=== PATIENT | female | born 2000 | race Two or more races ===

== ENCOUNTER 2020-12-07 20:00 | Emergency (ER) | payer OTHER ==
[~2020-12-07] VITALS: Ht 154.9 cm; Wt 113.6 kg
[2020-12-07] MEDS ORDERED: KETOROLAC TROMETHAMINE 30 MG/ML VIAL IM ONE (21:45)
[2020-12-07] MEDS ORDERED: HYDROCODONE/ACETAMINOPHEN 5-325 MG TABLET PO ONE (22:30)
[2020-12-07 22:40] VITALS: BP 130/79
== END 2020-12-07 22:52 | disposition home or self-care (01) ==
LOC: EMS 20:04
DX: S52.122A Displaced fracture of head of left radius, initial encounter for closed fracture (principal); V00.131A Fall from skateboard, initial encounter; Y93.51 Activity, roller skating (inline) and skateboarding; Y92.89 Other specified places as the place of occurrence of the external cause; Y99.8 Other external cause status
CPT/HCPCS: 73070; 73090; 81025; 82962; 96372; 99284; J1885